=== PATIENT | female | born 2000 | race Caucasian/White ===

== ENCOUNTER 2021-09-29 19:22 | Emergency (ER) | payer OTHER ==
[~2021-09-29] VITALS: Ht 167.6 cm; Wt 65.8 kg
[2021-09-29 19:23] VITALS: BP 120/90
--- NOTE | 2021-09-29 19:25 | NUR ---
PATIENT TO BED 3 VIA [facility]
--- NOTE | 2021-09-29 20:00 | NUR ---
IRENE ESQUIVEL AT BEDSIDE FOR EXAMINATION
[2021-09-29] MEDS ORDERED: ACETAMINOPHEN EXTRA STRENGTH 500 MG TAB PO ONE (20:10)
--- NOTE | 2021-09-29 20:15 | NUR ---
PATIENT TO THE BATHROOM FOR URINE COLLECTION
[2021-09-29 21:38] VITALS: BP 128/84
--- NOTE | 2021-09-29 21:38 | NUR ---
Patient discharged with v/s stable. Written and verbal after care instructions given and explained. Patient verbalized understanding. Ambulatory with steady gait. ID band removed. Excused work form. All questions addressed prior to discharge. Advised to follow up with PMD.
== END 2021-09-29 21:38 | disposition home or self-care (01) ==
LOC: MED 19:22
DX: M25.551 Pain in right hip (principal); R07.89 Other chest pain; M79.642 Pain in left hand; V89.2XXA Person injured in unspecified motor-vehicle accident, traffic, initial encounter; Y93.89 Activity, other specified; Y92.89 Other specified places as the place of occurrence of the external cause; Y99.8 Other external cause status
CPT/HCPCS: 71045; 73130; 73502; 81002; 81025; 99284